=== PATIENT | female | born 1955 | race Caucasian/White ===

== ENCOUNTER → 2019-06-14 | Outpatient (CLI) | payer BC | LOC: MC.RAD 13:50 | DX: Z12.31 Encounter for screening mammogram for malignant neoplasm of breast (principal); N63.20 Unspecified lump in the left breast, unspecified quadrant ==

== ENCOUNTER → 2019-06-20 | Outpatient (CLI) | payer BC | LOC: MC.RAD 12:44 | DX: N63.24 Unspecified lump in the left breast, lower inner quadrant (principal) ==

== ENCOUNTER → 2019-06-22 | Outpatient (CLI) | payer BC | LOC: MC.RAD 06:51 | DX: N63.24 Unspecified lump in the left breast, lower inner quadrant (principal); Z98.82 Breast implant status ==

== ENCOUNTER → 2021-06-28 | Outpatient (CLI) | payer MEDICARE, BC | LOC: COL.RAD 10:38 | DX: K44.9 Diaphragmatic hernia without obstruction or gangrene (principal); N20.0 Calculus of kidney; Z90.710 Acquired absence of both cervix and uterus | CPT/HCPCS: Q9967 ==

== ENCOUNTER 2024-03-08 12:24 | Day surgery (SDC) | payer MEDICARE, BC ==
[~2024-03-08] VITALS: Ht 157.5 cm; Wt 87.5 kg
[2024-03-08] VITALS (10 sets, daily range): BP systolic 103–150; BP diastolic 65–87; PULSE 70–91; TEMP 97.8
[~2024-03-08 12:24] MED LIST: LR 1,000 ML IV SCH
[2024-03-08] MEDS ORDERED: HYDROmorphone 1 MG/1 ML SYRINGE [PACU/SDC ONLY] IV PRN (13:15)
[2024-03-08] MEDS ORDERED: Ondansetron 4 MG/2 ML VIAL IV PRN ×2 (13:15→17:00)
[2024-03-08] MEDS ORDERED: fentaNYL 50 MCG/ML 1 ML SYRINGE/VIAL [PACU/SDC ONLY] IV PRN (13:15)
[2024-03-08] MEDS ORDERED: Rocuronium 50 MG/5 ML Multi-Dose VIAL ONE (13:43)
[2024-03-08] MEDS ORDERED: Lidocaine PF 2% (20 MG/ML) 5 ML VIAL ONE (13:43)
[2024-03-08] MEDS ORDERED: fentaNYL 50 MCG/ML 5 ML VIAL ONE (13:43)
[2024-03-08] MEDS ORDERED: BENICAR40 MG PO (13:54)
[2024-03-08] MEDS ORDERED: PRIL40 PO (13:55)
[2024-03-08] MEDS ORDERED: TIROSINT75 MC1 PO (13:55)
[2024-03-08] MEDS ORDERED: D3-5050000 IU PO (13:56)
[2024-03-08] MEDS ORDERED: LASIX 40MG TABL40 MG PO (13:57)
[2024-03-08] MEDS ORDERED: ULTRAM 50MG TAB50 MG PO (13:57)
[2024-03-08] MEDS ORDERED: URITRAX47 GM PO (13:59)
[2024-03-08] MEDS ORDERED: LYSINE1000 MG PO (14:00)
[2024-03-08] MEDS ORDERED: FEOSOL45 MG PO (14:01)
[2024-03-08] MEDS ORDERED: B-121000 MCG PO (14:02)
[2024-03-08] MEDS ORDERED: ALEVE LIQCAPS PO (14:02)
[2024-03-08] MEDS ORDERED: Topical Skin Adhesive 1 EACH (1 ML) TOP ONE (15:38)
[2024-03-08] MEDS ORDERED: Naloxone 0.4 MG/ML VIAL IV PRN (17:00)
[2024-03-08] MEDS ORDERED: Naproxen 250 MG TAB PO PRN (17:00)
[2024-03-08] MEDS ORDERED: traMADol 50 MG TAB PO SCH (17:00)
[2024-03-08] MEDS ORDERED: oxyCODONE 5 MG TAB PO PRN (17:00)
[2024-03-08] MEDS ORDERED: Acetaminophen 500 MG TAB PO SCH (17:52)
--- NOTE | 2024-03-08 18:15 | NUR ---
PATIENT BROUGHT UP TO FLOOR AT APPROXIMATELY 1800. POST OP VITALS RUNNING AND WNL. POST OP FLUIDS INFUSING INTO RIGHT AC. LAPS X6 CDI WITH SKIN GLUE. PATIENT REPORTS HAVING GAS PAIN IN SHOULDERS. PO MYLICON ORDERED. PATIENT RESTING IN BED. CALL LIGHT IN REACH.
--- NOTE | 2024-03-08 19:22 | NUR ---
Bedside report received from JESSY Landa. Pt awake in bed visiting with at bedside. Pt has no complaints at this time. Call light within reach.
--- NOTE | 2024-03-08 21:10 | NUR ---
Pt awake in bed on telephone. Shift assessment completed. VSS. Post op vital signs completed. ABD lap sites x6 CDI covered with skin glue. Pt reports general pain in ABD and shoulders rating 5/10. Scheduled Ultram administered per aug. Encourged pt to ambulates in hallways to relieve some pain in shoulders. Pt ambulates independently in hallway with no complications. INT to Lt AC patent with no swelling, redness, or drainage. Pt tolerated PO fluids with no complications. Pt has no request at this time. Call light within reach.
[2024-03-09] VITALS (9 sets, daily range): BP systolic 125–152; BP diastolic 77–88; PULSE 72–89; TEMP 98–98.1
[2024-03-09] MEDS ORDERED: Omeprazole 40 MG **** subs to Pantoprazole 40 MG PO SCH (07:00)
--- NOTE | 2024-03-09 08:00 | NUR ---
PATIENT AWAKE, SITTING UP IN BED. AAOX4. ASSESSMENT COMPLETED. PATIENT REPORTS SINUS CONGESTION, HEADACHE THROUGH THE NIGHT, BUT MOSTLY RESOLVED. MORNING MEDS GIVEN. TRACE EDEMA BILATERAL UPPER EXTREMITIES. BED IN LOWEST POSITION, CALL LIGHT WITHIN REACH. LEFT THE ROOM WHILE PATIENT BEGAN TO EAT HER BREAKFAST.
[2024-03-09] MEDS ORDERED: Furosemide 40 MG TAB PO SCH (09:00)
[2024-03-09] MEDS ORDERED: Losartan 50 MG TAB PO SCH (09:00)
[2024-03-09] MEDS ORDERED: Olmesartan 40 MG **** subs to Losartan 100 MG PO SCH (09:00)
[2024-03-09] MEDS ORDERED: VITAMIN D31000 I1 PO (09:13)
--- NOTE | 2024-03-09 10:28 | NUR ---
highway worker met with patient Shelly and partner Oniel (P# [phone]) at bedside to discuss discharge planning. Patient stated that she lives in [place] with her partner. She relayed that her PCP is Dr. Ramos, she uses the [facility] pharmacy in [place], and that she has no difficulty affording or accessing her medication. She states that she uses no medical equipment or home services, and that she is independent in transportation and ADLs. When asked, Patient denied having a DPOA but declined any assistance with designating one at this time. Patient denies any concerns regarding discharge at this time. Plan: D/C home.
[2024-03-09] MEDS ORDERED: ULTRAM 50MG TAB50 MG PO (11:07)
[2024-03-09] MEDS ORDERED: NORCO 325 MG-51 TAB PO (15:53)
--- NOTE | 2024-03-09 17:08 | NUR ---
DISCHARGE INSTRUCTIONS PROVIDED, PATIENT EDUCATION GIVEN, IV D/C, FOLLOW UP APPOINTMENTS DISCUSSED, MEDICATIONS REVIEWED, PATIENT DENIES ANY QUESTIONS OR CONCERNS. PATIENT ESCORTED OUT VIA WHEELCHAIR WITH BELONGINGS.
== END 2024-03-09 17:00 | disposition home or self-care (01) ==
LOC: SDCO 12:24 → SURG 17:53 → SDCO 03-09 17:00
DX: K44.9 Diaphragmatic hernia without obstruction or gangrene (principal); K21.9 Gastro-esophageal reflux disease without esophagitis; E66.9 Obesity, unspecified
CPT/HCPCS: OP; C1781; J0690; J1170; J2704; J3010; J7120